=== PATIENT | male | born 1980 | race African-American/Black ===

== ENCOUNTER 2016-11-21 20:07 | Emergency (ER) | payer BC, SELFPAY | END 2016-11-21 20:57 | disposition home or self-care (01) | LOC: NAV ERS 20:07 | DX: L03.012 Cellulitis of left finger (principal) | CPT/HCPCS: 26010; 87070; 87205 ==

== ENCOUNTER 2016-12-27 17:34 | Emergency (ER) | payer SELFPAY | END 2016-12-27 18:07 | disposition home or self-care (01) | LOC: NAV ERS 17:34 | DX: B35.6 Tinea cruris (principal) | CPT/HCPCS: 99282 ==

== ENCOUNTER 2017-04-20 23:11 | Emergency (ER) | payer SELFPAY ==
[2017-04-20] MEDS ORDERED: Oseltamivir 75 MG CAP ONE (23:41)
== END 2017-04-20 23:50 | disposition home or self-care (01) ==
LOC: NAV ERS 23:11
DX: J11.1 Influenza due to unidentified influenza virus with other respiratory manifestations (principal); F41.9 Anxiety disorder, unspecified
CPT/HCPCS: 99283